=== PATIENT | male | born 1965 | race Caucasian/White ===

== ENCOUNTER 2019-06-06 06:05 | Day surgery (SDC) | payer BC ==
[2019-06-01 11:13] LABS: HEMATOCRIT 46.8 % (37.9-51.0); HEMOGLOBIN 16.3 g/dL (13.5-17.0); MEAN CORPUSCULAR HEMOGLOBIN 31.1 pg (27.0-33.4); MEAN CORPUSCULAR HGB CONC 34.8 g/dL (32.0-36.0); MEAN CORPUSCULAR VOLUME 89 fl (80-97); PLATELET COUNT 207 10^3/uL (150-450); RED BLOOD COUNT 5.23 10^6/uL (4.35-5.55); RED CELL DISTRIBUTION WIDTH 13.4 % (11.5-14.0); WHITE BLOOD COUNT 6.1 10^3/uL (4.0-10.5)
[2019-06-01 11:16] LABS: INTERNATIONAL RATION (INR) 0.94; PARTIAL THROMBOPLASTIN TIME 29.4 SEC (23.5-35.8); PROTHROMBIN TIME 12.6 SEC (11.4-15.4)
--- NOTE | 2019-06-01 20:01 | EKG REPORT ---
SEVERITY:- ABNORMAL ECG - SINUS RHYTHM LEFT VENTRICULAR HYPERTROPHY : Confirmed by: Yulia Peng MD 01-Jun-2019 20:01:04
[~2019-06-06 06:05] MED LIST: CEFAZOLIN 1 GM/D5W RTU 1 GM/50 ML RTUPB IV ONE; CEFAZOLIN 1 GM/D5W RTU 1 GM/50 ML RTUPB IV PRN; LACTATED RINGERS 1000 ML IV PRN; LIDOCAINE 0.5% INJ-PF (5 MG/ML) 50 ML SDV SUBCUT PRN
[2019-06-06] MEDS ORDERED: LIDOCAINE 2% INJ-PF (20 MG/ML) 10 ML AMPUL ONE (07:00)
[2019-06-06] MEDS ORDERED: EPHEDRINE SULFATE INJ 50 MG/1 ML AMPULE ONE (07:01)
[2019-06-06] MEDS ORDERED: FENTANYL CITRATE INJ/PF 100 MCG/2 ML AMPUL ONE (07:01)
[2019-06-06] MEDS ORDERED: KETAMINE HCL INJ 500 MG/10 ML VIAL ONE (07:01)
[2019-06-06] MEDS ORDERED: MIDAZOLAM 2 MG/2 ML INJ ONE (07:01)
[2019-06-06] MEDS ORDERED: PROPOFOL INJ 200 MG/20 ML VIAL IV ONE ×2 (07:01→07:02)
[2019-06-06] MEDS ORDERED: DEXAMETHASONE SOD PHOSPHATE INJ 4 MG/1 ML VIAL ONE (07:16)
[2019-06-06] MEDS ORDERED: ONDANSETRON HCL INJ/PF 4 MG/2 ML SDV ONE (07:16)
[2019-06-06] MEDS ORDERED: SODIUM BICARBONATE 4.2% INJ (2.5 MEQ/5 ML) VIAL ONE (07:29)
[2019-06-06] MEDS ORDERED: METHYLENE BLUE 50 MG/10 ML AMPULE ONE (07:29)
[2019-06-06] MEDS ORDERED: LIDOCAINE 1%/EPINEPHRINE INJ 20 ML VIAL ONE (07:30)
[2019-06-06] MEDS ORDERED: SUCCINYLCHOLINE CHLORIDE INJ 200 MG/10 ML VIAL ONE (08:18)
[2019-06-06] MEDS ORDERED: DIPHENHYDRAMINE HCL 50 MG/ML VIAL IV PRN (08:51)
[2019-06-06] MEDS ORDERED: ONDANSETRON HCL INJ/PF 4 MG/2 ML SDV IV PRN (08:51)
[2019-06-06] MEDS ORDERED: FENTANYL CITRATE INJ/PF 100 MCG/2 ML AMPUL IV PRN ×3 (08:51)
[2019-06-06] MEDS ORDERED: PROMETHAZINE HCL INJ 25 MG/1 ML VIAL IV PRN ×2 (08:51)
--- NOTE | 2019-06-06 09:47 | Operative Report ---
Operative Report DATE OF SURGERY: 06/06/19 PREOPERATIVE DIAGNOSIS: Mass of the right costal margin inframammary crease POSTOPERATIVE DIAGNOSIS: Lipoma of the right costal margin inframammary crease OPERATION: Excision of mass from the right costal margin/inframammary crease with closure SURGEON: REYNA GOMEZ ANESTHESIA: GA TISSUE REMOVED OR ALTERED: Lipoma COMPLICATIONS: None ESTIMATED BLOOD LOSS: Minimal PROCEDURE: The patient was brought into the operating room after being marked. The patient was placed in a sloppy lateral position. The patient was then prepped with a Betadine scrub and Betadine solution. A timeout was performed. The area for resection was outlined. Injection of 1% lidocaine with epinephrine and bicarbonate was performed for its anesthetic and hemostatic effects. An incision was then made through the skin into the subcutaneous tissue. Dissection was performed [id number] to encounter the mass. Once the mass was encountered a dissection was performed 360 in order to remove the mass Retraction was used to facilitate exposure. Dissection was performed through the subcutaneous superficial layer then down onto the mass and onto the deep muscle fascia . The dissection was performed in the subcutaneous plane and then continued down onto the deep fascia This was a very adherent mass to the deep fascia. It was difficult to peel this off of the fascia. The mass was multilobular making it difficult to discern the margins. [id number] the mass was dissected free of the surrounding tissue. Throughout the case hemostasis was achieved with the bipolar and the Bovie. Once the mass was completely dissected it was then removed. The area was washed with Betadine and sterile water solution. Hemostasis was confirmed. Closure was then performed using 3-0 Vicryl sutures. Because of the size of the mass deeper sutures were placed in order to minimize a deformity. The layers that were dissected were closed [id number] until we reached the deep dermis. 3-0 Vicryl was used for deep dermal sutures. A subcuticular stitch was placed using 3-0 PDS. A central support stitch was placed using 3-0 PDS. The wound was cleaned with Betadine prior to the final closure. Tincture of benzoin and Steri-Strips with a light pressure dressing was applied. Patient was then reversed from anesthesia and taken to the [facility] for recovery. The approximate size of the mass was approximately 7 cm. This dictation was performed with dragon naturally speaking. If there are any inconsistencies or errors please contact the physician. Subjective: No complaints Objective: Vital signs stable afebrile No bleeding Dressing intact Assessment and plan: Doing well. Elevate the operative site. Resume medications. Take antibiotics for 1 day Follow-up Full instructions were given to the patient and family and they understand Portions of this note may be dictated using [employer] voice recognition software. Occasional variations and spelling and vocabulary could be possible and are unintentional. Additionally, there is a chance that some errors may not be caught or corrected. Please notify the offer of any discrepancies noted or if any statements are unclear.
--- NOTE | 2019-06-06 09:49 | Operative Report ---
Operative Report DATE OF SURGERY: 06/06/19 PREOPERATIVE DIAGNOSIS: Mass of the right costal margin inframammary crease POSTOPERATIVE DIAGNOSIS: Lipoma of the right costal margin inframammary crease OPERATION: Excision of mass from the right costal margin/inframammary crease with closure SURGEON: REYNA GOMEZ ANESTHESIA: GA TISSUE REMOVED OR ALTERED: Lipoma ESTIMATED BLOOD LOSS: Minimal PROCEDURE: Please note that the incision had exofin glue applied to the surface not tincture of benzoin and Steri-Strips
--- NOTE | 2019-06-06 09:51 | Discharge Summary ---
Discharge Summary (SDC) - Discharge Final Diagnosis: Mass of the right costal margin/inframammary crease Date of Surgery: 06/06/19 Condition: Good Forms: ASU Anesthesia D/C Instruction, Discharge POC-Surgical Service Treatment or Instructions: Antibiotics for 1 day, then discontinue. Elevate operative area to decrease swelling. Do not strain, or lift heavy objects. Call for excessive bleeding, increased temperature of 101, uncontrolled pain, or excessive nausea or vomiting. You may reach Dr. Gomez through his office at [phone]. In the event of an emergency after hours, then contact Dr. Gomez through [facility]. Return to the office for a postop check on . The time will be scheduled by the nursing staff of [facility] prior to discharge. Please give the patient a copy of their labs and EKG so they can bring this to their PMD. Thank you Portions of this note may be dictated using [employer] voice recognition software. Occasional variations and spelling and vocabulary could be possible and are unintentional. Additionally, there is a chance that some errors may not be caught or corrected. Please notify the offer of any discrepancies noted or if any statements are unclear. Referrals: REYNA GOMEZ MD [ACTIVE STAFF] - Discharge Diet: As Tolerated Respiratory Treatments at Home: Deep Breathing/Coughing Discharge Activity: No Lifting/Push/Pulling Report the Following to Your Physician Immediately: Unusual Bleeding - No bending or straining. Keep flexed. Do not lay completely flat. No twisting.
[2019-06-06 13:42] VITALS: BP 120/82
== END 2019-06-06 11:30 | disposition home or self-care (01) ==
LOC: OROUT 06:05
PROVIDERS: ATTEND Plastic Surgery
DX: D17.1 Benign lipomatous neoplasm of skin and subcutaneous tissue of trunk (principal)
CPT/HCPCS: 93005; 36415; 85027; 85610; 85730; 88304 ×2; 93010; 21554; J2250; J0690; J1100; J3490 ×4; J3010; J0330; J2405; J2704; 400; 88305; Q9968

== ENCOUNTER → 2019-07-18 | Outpatient (CLI) | payer BC ==
--- NOTE | 2019-07-18 18:02 | XCELERA REPORT ---
[address] [address] Transthoracic Echocardiogram Report Name: YUE MADRID Age: 53 yrs Gender: Male : 1965 Patient Status: Outpatient Patient Location: Study Date: 07/18/2019 07:56 AM Height: 72 in Weight: 175 lb BSA: 2.0 m2 Reason For Study: ABN EKG Ordering Physician: LUIS CASTELAN Performed By: Lizbeth Lara Interpretation Summary Regional wall motion abnormality in LV is noted, etiology is uncertain. Uncertain what abnormality is seen on EKG. Clinical correlation is needed. Overall LVEF is still normal but there is stage I LV diastolic dysfunction. RH is poorly visualised and unable to assess RVSP. to rule out pulm hypertension. MMode/2D Measurements & Calculations RVDd: 3.0 cm LVIDd: 4.6 cm FS: 34.7 % Ao root diam: 3.6 cm IVSd: 0.85 cm LVIDs: 3.0 cm EDV(Teich): Ao root area: LVPWd: 1.2 cm 95.2 ml ESV(Teich): 10.0 cm2 34.3 ml LA dimension: 3.1 cm EF(Teich): 63.9 % LVLd ap4: 8.4 cm SV(MOD-sp4): EDV(MOD-sp4): 83.0 ml 122.0 ml LVLs ap4: 7.0 cm ESV(MOD-sp4): 39.0 ml EF(MOD-sp4): 68.0 % Doppler Measurements & Calculations MV E max brayden: MV P1/2t max brayden: Ao V2 max: LV V1 max P.2 cm/sec 63.2 cm/sec 93.1 cm/sec 2.9 mmHg MV A max brayden: MV P1/2t: 51.7 msec Ao max P.5 mmHg LV V1 max: 71.6 cm/sec 85.0 cm/sec MV E/A: 0.88 MVA(P1/2t): 4.3 cm2 MV dec slope: 358.0 cm/sec2 MV dec time: 0.20 sec PA V2 max: PI end-d brayden: MV P1/2t-pr_phl: 83.4 cm/sec 93.7 cm/sec 52.0 msec PA max P.8 mmHg Left Ventricle The left ventricle is normal in size. There is mild asymmetric left ventricular hypertrophy. IVS 8mm/PW 12 mm. LV EF is 60%. Doppler measurements suggest impaired left ventricular relaxation, which is associated with grade I/IV or mild diastolic dysfunction. There are regional wall motion abnormalities as specified. Hypokinetic anteroseptal wall, basal lateral wall, basal inferoseptasl wall, basal anterior wall and basal inferior wall. There is no thrombus. Right Ventricle The right ventricle is not well visualized secondary to technical limitations. The right ventricular systolic function is normal. Atria Right atrium not well visualized secondary to technical limitations. The left atrial size is normal. There is no Doppler evidence for an interatrial shunt. Mitral Valve The mitral valve is normal in structure and function. There is mild mitral annular calcification. There is no evidence of mitral valve prolapse. There is no vegetation seen on the mitral valve. There is no mitral valve stenosis. There is a mild amount of mitral regurgitation. Aortic Valve The aortic valve opens well. The aortic valve is sclerotic and shows some degree of functional abnormality. The aortic valve is trileaflet. There is no aortic valvular vegetation. There is no aortic valve stenosis. No aortic regurgitation is present. Tricuspid Valve The tricuspid valve is not well visualized secondary to technical limitations. No tricuspid regurgitation. Pulmonic Valve The pulmonic valve is not well visualized. There is a trace or physiologic amount of pulmonic regurgitation. Great Vessels The aortic root is not well visualized. Effusions Minimal pericardial effusion. I WMSI = 1.38 % Normal = 63 Segments Size X - Cannot 2 - 4 - 1-2 small Interpret 1 - Normal Hypokinetic 3 - AkineticDyskinetic 3-5 moderate 5 - 6-14 large Aneurysmal 15-16 diffuse : LUIS CASTELAN Andre
== END ==
LOC: SP 07:40
PROVIDERS: ATTEND Registered Nurse
DX: R94.31 Abnormal electrocardiogram [ECG] [EKG] (principal)
CPT/HCPCS: 93306